=== PATIENT | female | born 1975 ===

== ENCOUNTER → 2021-06-22 | Outpatient (CLI) | payer OTHER ==
--- NOTE | 2021-06-22 14:50 | Diagnostic Imaging Report ---
PROCEDURE: Pelvic comp/transvaginal sonogram. TECHNIQUE: Complete transabdominal and transvaginal pelvic ultrasound was performed. In addition, limited pelvic Doppler was performed. INDICATION: Abnormal uterine bleeding. FINDINGS: The uterus is anteverted measuring 9.8 x 5.2 x 6.8 cm. There is a slightly heterogeneous mass either within the endometrium or within a submucosal location of the endometrium measuring 2.7 x 3.1 x 2.9 cm. No other uterine masses are seen. The right ovary measures 2.5 x 2.3 x 2.4 cm and the left ovary measures 2.8 x 1.8 x 1.9 cm. The left ovary does contain a 2.7 cm cyst. There is blood flow to both ovaries. There is no free fluid. IMPRESSION: 1. Approximately 3 cm mass either within the endometrium or within the submucosal location. This is suggestive of either a submucosal fibroid versus an endometrial mass such as a polyp or other etiology. 2. 2.7 cm left ovarian cyst. Dictated by: Dictated on workstation # [id number]
== END ==
LOC: RAD 14:15
PROVIDERS: ATTEND Obstetrics & Gynecology
DX: N83.202 Unspecified ovarian cyst, left side (principal); N93.9 Abnormal uterine and vaginal bleeding, unspecified
CPT/HCPCS: 76830; 76856

== ENCOUNTER 2021-07-02 05:28 | Outpatient (CLI) | payer SELFPAY ==
[~2021-07-02] VITALS: Ht 157.5 cm; Wt 88.8 kg
== END 2021-07-02 15:56 | disposition home or self-care (01) ==
LOC: PREOP 05:28
PROVIDERS: ATTEND Obstetrics & Gynecology
DX: Z01.818 Encounter for other preprocedural examination (principal)

== ENCOUNTER 2021-07-09 06:15 | Day surgery (SDC) | payer OTHER ==
[~2021-07-09] VITALS: Ht 157.5 cm; Wt 88.8 kg
[2021-07-09] VITALS (20 sets, daily range): BP systolic 79–125; BP diastolic 44–79
[2021-07-09] MEDS ORDERED: ceFAZolin 2 GM IV Premixed 50 ML IV ONE (06:30)
[2021-07-09] MEDS: LACTATED RINGERS 1,000 ML IV PRN ×2 (06:41→08:32)
[2021-07-09] MEDS ORDERED: LIDOCAINE/EPI 2% 1:100,00 (XYLOCAINE) 20 ML VIAL ONE (06:54)
[2021-07-09 07:00] LABS: BASOPHILS % (AUTO) 0 % (0-10); EOSINOPHILS # (AUTO) 0.2 10^3/uL (0.0-0.3); EOSINOPHILS % (AUTO) 2 % (0-10); HEMATOCRIT 43 % (35-52); HEMOGLOBIN 14.3 g/dL (11.5-16.0); LYMPHOCYTES # (AUTO) 2.1 10^3/uL (1.0-4.0); LYMPHOCYTES % (AUTO) 24 % (12-44); MEAN CORPUSCULAR HEMOGLOBIN 31 pg (25-34); MEAN CORPUSCULAR HGB CONC 34 g/dL (32-36); MEAN CORPUSCULAR VOLUME 92 fL (80-99); MEAN PLATELET VOLUME 9.4 fL (9.0-12.2); MONOCYTES # (AUTO) 0.8 10^3/uL (0.0-1.0); MONOCYTES % (AUTO) 9 % (0-12); NEUTROPHILS # (AUTO) 5.7 10^3/uL (1.8-7.8); NEUTROPHILS % (AUTO) 64 % (42-75); PLATELET COUNT 310 10^3/uL (130-400); WHITE BLOOD COUNT 8.8 10^3/uL (4.3-11.0)
[2021-07-09] MEDS ORDERED: MIDAZOLAM 2 MG/2 ML (VERSED) VIAL ONE (07:11)
[2021-07-09] MEDS ORDERED: SEVOFLURANE (ULTANE) 15 ML INHAL SOLN ONE ×3 (07:11→10:20)
[2021-07-09] MEDS ORDERED: proPOfol 200 MG/20 ML (DIPRIVAN) VIAL IV ONE ×2 (07:11→09:58)
[2021-07-09] MEDS ORDERED: ROCURONIUM 10 MG/ML 5 ML SYRINGE IV ONE (07:11)
[2021-07-09] MEDS ORDERED: fentaNYL INJ 100 MCG/2 ML AMP ONE ×2 (07:11→08:17)
[2021-07-09] MEDS ORDERED: ONDANSETRON 4 MG/2 ML (SDV) Z0FRAN ONE (07:11)
[2021-07-09] MEDS ORDERED: LIDOCAINE PF 2% 5 ML (XYLOCAINE) VIAL ONE (07:11)
[2021-07-09 07:16] LABS: POTASSIUM 4.1 MMOL/L (3.6-5.0)
[2021-07-09 07:17] LABS: CALCIUM 8.9 MG/DL (8.5-10.1)
[2021-07-09 07:21] LABS: CREATININE SERUM 0.66 MG/DL (0.60-1.30)
--- NOTE | 2021-07-09 07:22 | Progress Note-Pre Operative ---
Pre-Operative Progress Note H&P Reviewed The H&P was reviewed, patient examined and no changes noted. Time Seen by Provider: 06:50 Date H&P Reviewed: Jul 09, 2021 Time H&P Reviewed: 06:57 Pre-Operative Diagnosis: uterine fibroids, abnormal uterine bleeding, dysme AZUL Shahid MD Jul 09, 2021 07:22
[2021-07-09] MEDS ORDERED: ATROPINE INJ 0.4 MG/ML SDV ONE (08:22)
--- NOTE | 2021-07-09 10:48 | Anesthesia-General Post-Op ---
General Patient Condition Mental Status/LOC: Same as Preop Cardiovascular: Satisfactory Nausea/Vomiting: Absent Respiratory: Satisfactory Pain: Controlled Complications: Absent Post Op Complications Complications None Follow Up Care/Instructions Patient Instructions None needed. Anesthesia/Patient Condition Patient Condition Patient is doing well, no complaints, stable vital signs, no apparent adverse anesthesia problems. No complications reported per nursing. LIZ ARAYA CRNA Jul 09, 2021 10:48
[2021-07-09] MEDS ORDERED: METOCLOPRAMIDE INJ 10 MG/2 ML (REGLAN) IV PRN (11:00)
[2021-07-09] MEDS ORDERED: morphine INJ 10 MG/ML 1ML (SYR OR VIAL) IVP ONE (11:00)
[2021-07-09] MEDS ORDERED: fentaNYL INJ 100 MCG/2 ML AMP IVP ONE (11:00)
[2021-07-09] MEDS ORDERED: LACTATED RINGERS 1,000 ML IV PRN (11:00)
[2021-07-09] MEDS ORDERED: NALOXONE 0.4 MG/ML 1 ML (NARCAN) VIAL IV PRN (11:00)
[2021-07-09] MEDS ORDERED: MEPERIDINE (DEMEROL) INJ 50 MG/ML IVP ONE (11:00)
[2021-07-09] MEDS ORDERED: ONDANSETRON 4 MG/2 ML (SDV) Z0FRAN IVP PRN (11:00)
[2021-07-09] MEDS ORDERED: IBUP-1773 PO (11:03)
[2021-07-09] MEDS ORDERED: OXYC5CAP18 PO (11:04)
--- NOTE | 2021-07-09 11:13 | OB/GYN Operative Report ---
Operative Report Date of Procedure:Jul 09, 2021 Preoperative Diagnosis: [] Abnormal uterine bleeding, pelvic pain, dysmenorrhea, uterine fibroids Postoperative Diagnosis: [] Same Name of the Procedure: [] Robotic assisted laparoscopic assisted vaginal hysterectomy with bilateral salpingo-oophorectomy Surgeon: Azul Thomason Filbert Grower(s): [none] Anesthesia: [] General Indications for Procedure: [] Uterine fibroids dysmenorrhea abnormal uterine bleeding Findings of the Procedure: [] Left ovary with cystic changes tubes consistent with previous ligation uterus with multiple fibroids normal-appearing cervix Procedure: [] After the risk benefits alternatives of the procedure were described to the patient she was taken to the operating room where general anesthesia was obtained at difficulty. She was placed in dorsolithotomy position and prepped and draped in the usual sterile fashion. A Orozco catheter was placed and a weighted speculum was placed in the patient's vagina. The anterior lip of the cervix was grasped with a double-tooth tenaculum and an 0 Vicryl suture was placed in a [id number] stitch at 3 and 9:00 positions. The Nilda manipulator was assembled with the blue tip and 3 cm cervical cuff in the usual sterile fashion on all the other instruments were removed from the patient's vagina. Attention was turned the abdominal portion of the procedure. An 8 mm skin incision was made in the midline above the umbilicus. The Veress needle was advanced while tenting the abdominal wall upward. Pneumoperitoneum was achieved the varies needle was removed and an 8 mm trocar and sleeve were advanced without difficulty. The patient was placed in Trendelenburg and the laparoscope advanced confirming intra-abdominal placement. An 8 mm skin incision was made in the right and left outer quadrants and corresponding trocar and sleeves were advanced without difficulty and under direct visualization. The pelvis was surveyed with the above findings. The ureters were visualized to course over the pelvic brim and outside the anticipated surgical field. The infundibulopelvic ligaments were isolated cauterized and cut hemostasis was assured. The remainder of the adnexal structures were amputated in a similar fashion without difficulty. The round ligaments were isolated cauterized and cut hemostasis was assured. The broad ligament was dissected anteriorly and posteriorly towards the cervix exposing the uterine vessels. The left vessels were significantly larger than the right and were isolated separately the vein and the artery. They were isolated cauterized and cut and hemostasis was assured bilaterally. The anterior peritoneum was dissected off the cervix to expose the cervical cup. An anterior colpotomy was made however unable to manipulate at the cervix to expose laterally and posteriorly. At this point it was discovered that the patient had slid on the bed despite shoulder braces. The robot was undocked the patient was moved down on the bed and Trendelenburg replaced. The robot was redocked and while there was improved to manipulation still inadequate exposure to safely proceed with laparoscopic. The robot was undocked pneumo was turned off and attention was turned to the vaginal portion. A weighted speculum was placed after the Nilda was removed and the anterior and posterior lips grasped with Vargas clamps. The posterior peritoneum was hydrodissected and entered with Willingham clamps. A Nilda retractor was placed in the posterior and anterior cul-de-sac to protect the bladder and the bowel. The uterosacral ligaments were clamped with Elton clamps amputated and suture ligated and tagged for later use. What remained of the broad ligament was serially clamped cut and suture ligated in a similar fashion. The specimen was delivered through the vagina intact and sent for pathology. Hemostasis was appreciated above the level of the vaginal cuff. A modified Sherwood stitch was placed with a 2-0 Vicryl stitch grasping pieces of the peritoneum at 12 3 6 9:00. The uterosacral ligaments were transfixed bilaterally and tied in the midline to add additional apical support. The vaginal cuff was closed with a running locked 0 Vicryl suture. Hemostasis was assured. All instruments removed from the patient's vagina. All instruments removed from the patient's abdominal cavity and the skin incisions closed with subcuticular 4-0 Monocryl stitch. Dermabond was placed. Patient tolerated the procedure well sponge lap needle and instrument counts were correct x2 and she was taken the recovery room awake and in stable condition. She received 2 g of Ancef prior to incision. EBL was 200ml Complications: None Disposition: [Stable] AZUL THOMASON MD Jul 09, 2021 11:12
[2021-07-09] MEDS: KETOROLAC 15 MG/ML VIAL IV SCH ×2 (12:16→18:38)
[2021-07-09] MEDS: D5 LR IV SOLUTION 1,000 ML IV SCH ×2 (12:16→20:02)
[2021-07-09] MEDS: ACETAMINOPHEN 500 MG TAB (TYLENOL) PO SCH ×2 (13:31→19:49)
[2021-07-10] MEDS: KETOROLAC 15 MG/ML VIAL IV SCH ×2 (00:20→06:20)
[2021-07-10] MEDS: ACETAMINOPHEN 500 MG TAB (TYLENOL) PO SCH ×2 (02:41→08:48)
[2021-07-10] MEDS: D5 LR IV SOLUTION 1,000 ML IV SCH (03:21)
[2021-07-10 05:05] VITALS: BP 104/59
[2021-07-10] MEDS ORDERED: BENZOCAINE/MENTHOL (DERMOPLAST) 56 ML CAN TP ONE (08:41)
[2021-07-10 08:46] VITALS: BP 122/69
[2021-07-10] MEDS ORDERED: DOCUSATE SODIUM 100 MG (COLACE) CAP PO SCH (09:00)
--- NOTE | 2021-07-10 09:42 | Discharge Inst-Women's Service ---
Discharge Inst-Women's Serv Depart Medication/Instructions New, Converted or Re-Newed RX: Transmitted to Pharmacy Consults/Follow Up Additional Follow Up: Yes (1wk incision check and 8wk follow-up) Activity Activity: Activity as Tolerated Driving Instructions: No Driving for 1 Week NO SMOKING: NO SMOKING Nothing Inside Vagina: No Douching, No [place], No Tampons Diet Discharge Diet: No Restrictions Symptoms to Report to DrDeisy: Bleeding Excessive, Pain Increased, Fever Over 101 Degrees F, Vaginal Bleeding Increase For Any Problems or Questions: Contact Your Physician Skin/Wound Care Operative Area Clean and Dry: Keep Incision Clean/Dry Stitches/Jo Ann/Dermabond: Dermabond ERIKA BHANDARI APRN Jul 10, 2021 09:40
[2021-07-10] MEDS ORDERED: IBUPROFEN 600 MG (MOTRIN) TAB PO SCH (12:00)
== END 2021-07-10 10:20 | disposition home or self-care (01) ==
LOC: SDC 06:15 → WS 12:01 → SDC 07-10 10:20
PROVIDERS: ATTEND Obstetrics & Gynecology
DX: D25.0 Submucous leiomyoma of uterus (principal); D25.1 Intramural leiomyoma of uterus; N93.9 Abnormal uterine and vaginal bleeding, unspecified; N94.6 Dysmenorrhea, unspecified; N83.8 Other noninflammatory disorders of ovary, fallopian tube and broad ligament; N83.292 Other ovarian cyst, left side; N83.291 Other ovarian cyst, right side; E66.9 Obesity, unspecified; F17.210 Nicotine dependence, cigarettes, uncomplicated; Z98.51 Tubal ligation status; Z68.36 Body mass index [BMI] 36.0-36.9, adult
CPT/HCPCS: 36415; 80048; 84703; 85025; 86850; 86900; 86901; 87081; 94664